=== PATIENT | male | born 1980 | race Hispanic/Latino ===

== ENCOUNTER 2017-11-20 11:24 | Inpatient (IN) | payer OTHER ==
[2017-11-20] MEDS ORDERED: Albuterol Sulfate 2.5 mg/3 ml Neb ONE (11:52)
[2017-11-20] MEDS ORDERED: Albuterol Sulfate 2.5 mg/0.5 ml Neb ONE (11:52)
[2017-11-20] MEDS ORDERED: methylPREDNISolone Sod Succ/PF 125 MG/2 ML VIAL ONE (11:57)
--- NOTE | 2017-11-20 13:52 | RAD ---
PORTABLE AP CHEST: Date: 11/20/17 HISTORY: Asthma. Patient has the flu. COMPARISON: 06/21/17. FINDINGS: Cardiac silhouette and pulmonary vasculature are within normal limits. The lungs are clear. There has been no interval change from prior study. IMPRESSION: No acute cardiopulmonary process. POS: [facility]
[2017-11-20] MEDS ORDERED: Acetaminophen 650 MG Suppository PR PRN (14:03)
[2017-11-20] MEDS ORDERED: Magnesium 2 GM/NS 0.9% 100 ML 2 GM in Premix Bag 1 BAG IVPB SCH ×2 (14:30→17:00)
--- NOTE | 2017-11-20 14:56 | HP ---
PRIMARY CARE PROVIDER: Teagan Linares PA-C CHIEF COMPLAINT: Shortness of breath. HISTORY OF PRESENT ILLNESS: Mr. Scott is a pleasant 37-year-old gentleman who was seen at [facility] following transfer from emergency room at [facility]. He has a history of asthma. He reports that he was doing well until yesterday. He had recent exposu re to a child who has respiratory tract infection. Today morning, he started feeling short of breath. He reports wheezing. He reports cough that is no nproductive. He reports headache and backache. He denies any nausea or vomiting. He denies any fev ers or chills. He denies any abdominal pain. He denies any diarrhea. REVIEW OF SYSTEMS: The following complete review of systems was negative, unless otherwise mentioned in the HPI or below: Constitutional: Weight loss or gain, ability to conduct usual activities. Skin: Rash, itching. Eyes: Double vision, pain. ENT/Mouth: Nose bleeding, neck stiffness, pain, tenderness. Cardiovascular: Palpitations, dyspnea on exertion, orthopnea. Respiratory: Shortness of breath, wheezing, cough, hemoptysis, fever or night sweats. Gastrointestinal: Poor appetite, abdominal pain, heartburn, nausea, vomiting, constipation, or diarr hea. Genitourinary: Urgency, frequency, dysuria, nocturia. Musculoskeletal: Pain, swelling. Neurologic/Psychiatric: Anxiety, depression. Allergy/Immunologic: Skin rash, bleeding tendency. PAST MEDICAL HISTORY: Significant for asthma. PAST SURGICAL HISTORY: None. SOCIAL HISTORY: Occasional alcohol use, no tobacco use or recreational drug use. FAMILY HISTORY: No family history of asthma. HOME MEDICATION: Proventil 2 puffs 2 times a day. ALLERGIES: No known drug allergies. PHYSICAL EXAMINATION: GENERAL: On examination, Mr. Scott is awake and alert, in moderate respiratory distress. VITAL SIGNS: Blood pressure is 102/64, pulse is 100. He is breathing at rate of 20 and saturating 1 00% on room air. He is obese. EYES: No scleral icterus. No conjunctival pallor. ENT: Moist mucosal membranes, no oropharyngeal erythema or exudates. NECK: Supple, nontender, trachea midline. RESPIRATORY: Accessory muscles of breathing are active. Chest wall movements are symmetric bilatera lly. Lung examination reveals diffuse expiratory wheezes. CARDIOVASCULAR: S1 and S2 are heard, regular. LUNGS: Peripheral pulses are palpable. No carotid bruit, no pericardial rub. ABDOMEN: Soft, nontender, bowel sounds heard, no hepatomegaly, no splenomegaly. NEUROLOGIC: Cranial nerves II-XII intact. Deep tendon reflexes are 2+. MUSCULOSKELETAL: Power is 5/5 in all 4 extremities. Normal range of movement at all major extremity joints. SKIN: No rashes or subcutaneous nodules. LYMPHATIC: No cervical lymphadenopathy. PSYCHIATRIC: Normal mood, normal affect, patient is oriented to person, place, and time. IMAGING DATA AND LABORATORY DATA: Mr. Scott's labs and investigations were reviewed. He had a ches t x-ray, which did not show any pulmonary infiltrates. Influenza screen was positive for influenza A antigen. He has normal white count, normal hemoglobin, normal platelet count, normal sodium, normal potassium, decreased carbon dioxide of 20, normal creatinine, elevated AST of 43, but otherwise unre markable liver profile. Arterial blood gases showing pH 7.38, pCO2 36.5 and pO2 81.6. ASSESSMENT AND PLAN: Mr. Scott is a pleasant 37-year-old gentleman who was seen at [facility] on 11/20/2017. His problem list includes: 1. Shortness of breath: Most likely secondary to asthma exacerbation, in turn, triggered by vital r espiratory infection. He will be admitted to the hospital and treated with oxygen, steroids, and bro nchodilators. 2. Influenza A infection: Will treat him with Tamiflu. 3. Asthma exacerbation: Treatment as mentioned above. Many thanks for allowing me to participate in Mr. Scott's care. Please feel free to contact me with any questions or concerns. We will administer magnesium intravenously as needed for asthma exacerbation. LEVEL OF RISK: Moderate. LEVEL OF COMPLEXITY: Moderate.
[2017-11-20 17:20] VITALS: BMI 47.6
[2017-11-20] MEDS ORDERED: FLU VACC QS2017-18 36 mo. & older 0.5 ML SYRINGE IM ONE (18:00)
[2017-11-20] MEDS: Acetaminophen 325 MG TAB PO PRN (19:46)
[2017-11-20] MEDS: Oseltamivir 75 MG CAP PO SCH (22:24)
[2017-11-21] MEDS: Acetaminophen 325 MG TAB PO PRN ×2 (01:38→06:16)
[2017-11-21 05:41] LABS: #Basophils 0.1 thou/uL (0.0-0.2); #Lymphocytes 0.5 thou/uL (1.20-3.40); #Monocytes 0.4 thou/uL (0.11-0.59); #Neutrophils 4.9 thou/uL (1.40-6.50); %Eosinophils 0.6 % (0.0-10.0); %Lymphocytes 8.3 % (21.0-51.0); %Monocytes 6.4 % (0.0-10.0); %Neutrophils 83.7 % (42.0-75.0); Hemoglobin 14.9 g/dL (14.0-18.0); Mean Corpuscular HGB CONC 33.5 g/dL (32.0-36.0); Mean Corpuscular Hemoglobin 32.2 pg (27.0-31.0); Mean Corpuscular Volume 96.3 fl (80.0-94.0); Mean Platelet Volume 9.1 fL (7.4-10.4); Platelet Count 188 thou/uL (130-400); RBC Distribution Width 11.8 % (11.5-14.5); Red Blood Cell (RBC) Count 4.62 mill/uL (4.70-6.10); White Blood Cell (WBC) Count 5.8 thou/uL (4.8-10.8)
[2017-11-21 05:50] LABS: Anion Gap 10 mmol/L (10-20); BUN (Urea Nitrogen) 8 mg/dL (8.9-20.6); Calc. Creatinine Clearance 260 mL/min (70-130); Calcium 8.8 mg/dL (7.8-10.44); Carbon Dioxide 25 mmol/L (22-29); Chloride 106 mmol/L (98-107); Estimated GFR-MDRD Greater than 90; Glucose 152 mg/dL (70-105); Potassium 4.2 mmol/L (3.5-5.1); Sodium 137 mmol/L (136-145)
[2017-11-21] MEDS ORDERED: Enoxaparin Sodium 40 MG/0.4 ML SYRINGE SC SCH (09:00)
[2017-11-21] MEDS: Oseltamivir 75 MG CAP PO SCH (09:06)
--- NOTE | 2017-11-21 13:24 | PRG ---
DATE OF SERVICE: 11/21/2017 SUBJECTIVE: The patient is seen and examined at bedside. He does not feel much better. He still is wheezing quite a bit. His appetite is somewhat poor and bowel movements are daily. PHYSICAL EXAMINATION: VITAL SIGNS: The patient's blood pressure is 132/96, his temperature is 96.9, pulse oximetry 89, res piratory rate is 16, O2 saturation is 98% on 2-3 liters by nasal cannula. HEENT: His head is atraumatic, normocephalic. Eyes, PERRLA. Conjunctivae pinkish. Oral mucosa is moist. His weight is high with a BMI of 47.6. NECK: Supple. LUNGS: With moderate wheezing bilaterally over both lung pedraza. HEART: S1 and S2 normal. No S3, no S4. No any murmur. ABDOMEN: Soft, obese, nontender, bowel sounds are present. No organomegaly. EXTREMITIES: No clubbing, cyanosis, or edema. NEUROLOGICAL EXAMINATION: He is alert and oriented x4. There is no sensorimotor deficit. Cranial n erves are intact. LABORATORY DATA: Labs showed normal white count, hemoglobin 14.9, hematocrit 44.5, platelet count is 188. Chemistry showed normal electrolytes, BUN of 8, glucose 152. IMPRESSION: 1. Asthma exacerbation secondary to influenza A, respiratory infection. 2. Influenza A infection, on Tamiflu. PLAN: To start his inhaled steroids, budesonide, twice a day along with his DuoNeb, continue Tamiflu , continue IV steroids high dose 40 mg every 6 hours IV push, continue O2 p.r.n., and start him on mo ntelukast at the time of discharge.
[2017-11-21 16:46] VITALS: BP 127/76; TEMP 98.3
[2017-11-21] MEDS ORDERED: Budesonide 0.5 MG/2 ML NEB INH SCH (18:30)
== END 2017-11-21 18:30 | disposition left against medical advice (07) | DRG 194 ==
LOC: ERS 11:24 → ERHOLD 12:54 → 2NO 15:41
PROVIDERS: ADMIT Internal Medicine; ATTEND Internal Medicine
DX: J10.1 Influenza due to other identified influenza virus with other respiratory manifestations (principal); J45.901 Unspecified asthma with (acute) exacerbation; E66.9 Obesity, unspecified; Z68.31 Body mass index [BMI] 31.0-31.9, adult
CPT/HCPCS: 36415; 71045; 80048; 85025; 90471; 90682; 90732; 94640; 96374; G0008; G0009; J1650; J2920; J2930; J3475; J7611; J7620; Q2036